=== PATIENT | female | born 1935 | race Hispanic/Latino ===

== ENCOUNTER 2017-11-04 08:17 | Day surgery (SDC) | payer MEDICARE ==
[2017-11-04] MEDS ORDERED: NACL 0.9% 1000 ML 1,000 ML IV SCH (09:00)
--- NOTE | 2017-11-04 09:25 | Anesthesia Day of Surgery ---
Anesthesia Day of Surgery - Day of Surgery Patient Examined: Yes Patient H&P Reviewed: Yes Patient is NPO: Yes Beta Blockers: No
--- NOTE | 2017-11-04 09:26 | Anesthesia Consultation ---
Anesthesia Consult and Med Hx - Airway Anesthetic Teeth Evaluation: Dentures ROM Head & Neck: Adequate Mental/Hyoid Distance: Adequate Mallampati Class: Class III Intubation Access Assessment: Good - Pulmonary Exam CTA: Yes - Cardiac Exam Cardiac Exam: No Murmur - Pre-Operative Health Status ASA Pre-Surgery Classification: ASA3 - Pulmonary Hx Smoking: Yes (1/2 ppd) Hx Asthma: No COPD: Yes Hx Pneumonia: No Hx Sleep Apnea: No - Cardiovascular System Hx Hypertension: Yes Hx Heart Murmur: Yes - Central Nervous System Hx Back Pain: Yes Hx Psychiatric Problems: No - Endocrine Hx Thyroid Disease: Yes (Thyroidectomy) Hx Hypothyroidism: Yes - Hematic Hx Anemia: Yes - Other Systems Hx Cancer: No
[2017-11-04] MEDS ORDERED: DIPRIVAN 10 MG/ML IV ONE ×2 (09:30→10:34)
[2017-11-04] MEDS ORDERED: NORMODYNE IV ONE (09:52)
[2017-11-04] MEDS ORDERED: WATER FOR IRRIG STERILE IR ONE (09:53)
[2017-11-04] MEDS ORDERED: XYLOCAINE MPF 2% ONE (10:00)
--- NOTE | 2017-11-04 10:28 | Short Stay Summary ---
Short Stay Documentation Date of service: 11/04/17 Narrative H&P: The patient presents for evaluation of iron deficiency anemia by EGD and colonoscopy. She has a history of a falling H&H and fatigue. - History Past Medical History: anemia, hypertension, hyperlipidemia Past Surgical History: appendectomy, hysterectomy Social history: , lives with family, no smoking, no alcohol abuse - Allergies and Medications Current Medications: Allergies nitrofurantoin Allergy (Verified 08/10/13 12:30) Unknown codeine Adverse Reaction (Verified 08/10/13 12:28) Swelling levofloxacin [From Levaquin] Adverse Reaction (Verified 08/10/13 12:28) Itching metronidazole [From Flagyl] Adverse Reaction (Verified 08/10/13 12:28) Itching Metronidazole HCl [From Flagyl] Adverse Reaction (Verified 08/10/13 12:28) Itching Penicillins Adverse Reaction (Verified 08/10/13 12:28) Rash Home Medications Medication Instructions Recorded Confirmed Last Taken Type Levothyroxine Sodium 112 mg PO DAILY 04/11/13 11/03/17 11/03/17 History Lisinopril 20 mg PO DAILY 04/11/13 11/03/17 11/03/17 History Simvastatin 20 mg PO DAILY 04/11/13 11/03/17 11/03/17 History 20 Carvedilol 1 tab PO DAILY 06/19/13 11/03/17 11/03/17 History Aspirin [Aspirin BABY CHEW TAB] 1 tab PO DAILY 08/09/13 11/03/17 11/03/17 History Amlodipine Besylate 1 tab PO DAILY 11/03/17 11/03/17 11/03/17 History Metoprolol Tartrate 1 tab PO DAILY 11/03/17 11/03/17 11/03/17 History Valsartan 1 tab PO DAILY 11/03/17 11/04/17 11/04/17 History 320-5 Active Medications Sodium Chloride (Nacl 0.9% 1000 Ml) 1,000 mls @ 50 mls/hr IV DIRECT FRANCISCA Last Admin: 11/04/17 09:05 Dose: 50 mls/hr - Physical exam General appearance: no acute distress, well-nourished Integumentary: no rash, no growths, no abnormal pigmentation HEENT: Atraumatic, PERRLA, EOMI, Mucous membr. moist/pink Lungs: Clear to auscultation Breasts: deferred Heart: Regular rate, Normal S1, Normal S2, No murmurs Gastrointestinal: normoactive bowel sounds, no tenderness, no distended, no masses, no organomegaly Female Genitourinary: deferred Rectal Exam: normal exam-external/orifice, normal rectal tone, no mass Extremities: no ischemia, pulses intact, pulses symmetrical, No edema, normal temperature, normal color Neurological: Normal gait, Normal speech, Strength at 5/5 X4 ext, Normal tone, Sensation intact, Cranial nerves 3-12 NL - Brief post op/procedure progress note Date of procedure: 11/04/17 Findings: see dictated reports Estimated blood loss: none Pathology: list (antral biopsies for h.pylori) Specimen disposition: to lab Condition: stable - Disposition Condition at discharge: Good Disposition: DC-01 TO HOME OR SELFCARE - Discharge Diagnoses (1) 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
--- NOTE | 2017-11-04 10:32 | Operative Report ---
Operative Report Operative Report: Date of procedure: 11/04/2017 Procedure: Esophagogastroduodenoscopy with ablation of AVMs in the second portion of the duodenum with argon plasma coagulation. Biopsies of the antrum for H. pylori. Preprocedure diagnosis: Iron deficiency anemia. Post procedure diagnosis: Erosive gastritis. Small hiatus hernia. Reflux esophagitis. 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 Reece Anesthesia: Monitored anesthesia care per anesthesia department Medications: Propofol per anesthesia Estimated blood loss: 0 After careful discussion of the nature and purpose of the procedure as well as details the technique risks benefits and alternatives consent was obtained. The patient was placed in the left lateral decubitus position and medicated per anesthesia. The tip of the [employer] EQ 570 video scope was passed per orum under direct vision into the esophagus and advanced into the stomach and descending duodenum. There were 2 small AVMs in the second portion of the duodenum which were ablated with the argon plasma welfare eligibility worker. The duodenal bulb and pylorus were symmetrical and normal. The scope was withdrawn into the stomach and the stomach then gently insufflated with air. The antrum revealed scattered punctate erosions but no deep ulcers. Biopsies were taken for H. pylori in the prepyloric area. The stomach was further insufflated and the scope was then retroflexed and partially withdrawn. The cardia, fundus, and body of the stomach were within normal limits and easily distensible.The scope was then withdrawn in the forward position. The esophagogastric junction was at 37 cm. A small hiatus hernia was present. Distal esophagitis was present. The esophageal body was otherwise normal throughout. The procedure was was well tolerated and the patient was observed in recovery. 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 Mild erosive gastritis. Small hiatus hernia and distal esophagitis consistent with reflux origin. Plan: Acid suppression therapy pending pathology results. Await biopsies for H. pylori. Further evaluation with colonoscopy to exclude neoplasia and angiodysplasia of the colon Electronically signed: Lizandro Reece MD
--- NOTE | 2017-11-04 10:34 | Operative Report ---
Operative Report Operative Report: Date of procedure: 11/04/2017 Preprocedure diagnosis: Iron deficiency anemia with history of angiodysplasia of the colon. Post procedure diagnosis: Mild diverticulosis of the right colon Procedure: Colonoscopy to the cecum Endoscopist: Dr. Reece Anesthesia: Monitored anesthesia care per anesthesia department Estimated blood loss: 0 Medications: Monitored anesthesia care. See separate report by anesthesia for details. After careful discussion of the nature and purpose of the procedure as well as details of the technique risks benefits and alternatives the patient gave consent. Please see recent history and physical from the office. The patient was placed in the left lateral decubitus position and medicated per anesthesia. A rectal exam was performed sphincter tone was normal there were no masses palpable. The 360Tn 570 scope was passed transanally and advanced under continuous direct vision without difficulty to the cecum. The colon was well prepared. The cecum was normal. The ascending colon revealed a few scattered diverticula but otherwise was normal and on forward and retroflexed views. The transverse colon, descending colon, and sigmoid colon were normal. The rectum was normal on forward and retroflexed views. The procedure was well-tolerated overall and the patient was observed in recovery. Conclusions: Mild right colon diverticulosis, otherwise normal colonoscopy to the cecum. Plan: Continue iron therapy. Office follow-up in 3 months. Signed electronically: Lizandro Reece M.D.
[2017-11-04 10:58] VITALS: BP 166/68
== END 2017-11-04 08:18 | disposition home or self-care (01) ==
LOC: GIO 08:17
PROVIDERS: ATTEND Internal Medicine Gastroenterology
DX: K21.0 Gastro-esophageal reflux disease with esophagitis (principal); K44.9 Diaphragmatic hernia without obstruction or gangrene; D50.0 Iron deficiency anemia secondary to blood loss (chronic); K55.20 Angiodysplasia of colon without hemorrhage; K57.30 Diverticulosis of large intestine without perforation or abscess without bleeding; K29.60 Other gastritis without bleeding; I10 Essential (primary) hypertension; J44.9 Chronic obstructive pulmonary disease, unspecified; E78.00 Pure hypercholesterolemia, unspecified; M19.90 Unspecified osteoarthritis, unspecified site; E89.0 Postprocedural hypothyroidism; F17.210 Nicotine dependence, cigarettes, uncomplicated; Z98.42 Cataract extraction status, left eye; Z98.41 Cataract extraction status, right eye; Z90.710 Acquired absence of both cervix and uterus; Z87.440 Personal history of urinary (tract) infections; Z98.890 Other specified postprocedural states; Z80.8 Family history of malignant neoplasm of other organs or systems; Z88.0 Allergy status to penicillin; Z88.5 Allergy status to narcotic agent; Z88.8 Allergy status to other drugs, medicaments and biological substances; Z79.82 Long term (current) use of aspirin; Z79.899 Other long term (current) drug therapy; Z79.01 Long term (current) use of anticoagulants; Z87.19 Personal history of other diseases of the digestive system
CPT/HCPCS: 43239; 45378; 88305; 88342; J2704; J7030